=== PATIENT | female | born 1995 | race Hispanic/Latino ===

== ENCOUNTER 2017-09-17 13:37 | Emergency (ER) | payer SELFPAY ==
[2017-09-17 14:40] LABS: BASOPHILS % (AUTO) 0.5 % (0.0-5.0); EOSINOPHILS % (AUTO) 1.1 % (0.0-8.0); HEMATOCRIT 35.5 % (36-48); MEAN CORPUSCULAR HEMOGLOBIN 27.8 pg (27.0-33.0); MEAN CORPUSCULAR HGB CONC 34.4 g/dL (32.0-36.0); MEAN CORPUSCULAR VOLUME 80.9 fL (79-99); MONOCYTES % (AUTO) 6.4 % (3.0-13.0); PLATELET COUNT (AUTO) 299 K/uL (130-400); RED BLOOD CELL COUNT(AUTO) 4.38 MIL/uL (4.00-5.50); RED CELL DISTRIBUTION WIDTH 13.6 % (11.0-15.5); WHITE BLOOD COUNT (AUTO) 10.1 K/uL (4.8-10.8)
[2017-09-17 14:41] LABS: APPEARANCE,URINE CLOUDY (CLEAR); BILIRUBIN,URINE Negative (NEGATIVE); COLOR,URINE Yellow (YELLOW); GLUCOSE, URINE (UA) Negative (NEGATIVE); KETONES,URINE Negative (NEGATIVE); LEUKOCYTE ESTERASE ,URINE Small (NEGATIVE); NITRATE,URINE Negative (NEGATIVE); OCCULT BLOOD,URINE Large (NEGATIVE); PROTEIN,URINE POS 1+ (NEGATIVE); UROBILINOGEN,URINE 0.2 mg/dL (0.2-1.0)
[2017-09-17 14:48] LABS: AMPHET/METH SCREEN,URINE NEGATIVE (NEGATIVE); BARBITURATE SCREEN, URINE NEGATIVE (NEGATIVE); BENZODIAZEPINES SCREEN,URINE NEGATIVE (NEGATIVE); CANNABINOID SCREEN,URINE NEGATIVE (NEGATIVE); COCAINE SCREEN,URINE NEGATIVE (NEGATIVE); HCG,QUAL RESULT NEGATIVE (NEGATIVE); OPIATE SCREEN,URINE NEGATIVE (NEGATIVE); PHENCYCLIDINE SCREEN,URINE NEGATIVE (NEGATIVE)
[2017-09-17 14:51] LABS: CREATININE 0.7 mg/dL (0.5-1.5); POTASSIUM 3.7 mmol/L (3.5-5.1)
[2017-09-17 14:57] LABS: ALBUMIN 3.5 g/dL (3.5-5.0); AMORPHOUS SEDIMENT,UR Few /LPF (None Seen); BACTERIA,URINE Few /HPF (None Seen); BILIRUBIN,TOTAL 0.2 mg/dL (0.2-1.0); SQUAMOUS EPITHELIAL CELL,UR Moderate /HPF (0-2); TOTAL PROTEIN, SERUM 7.6 g/dL (6.0-8.3)
[2017-09-17 15:06] LABS: BILIRUBIN,DIRECT 0.1 mg/dL (0.0-0.3)
[2017-09-17] MEDS ORDERED: FAMOTIDINE 20MG TAB 20 MG TAB ONE (15:43)
[2017-09-17] MEDS ORDERED: ONDANSETRON ODT 4 MG TAB ONE (15:43)
[2017-09-17] MEDS ORDERED: DICYCLOMINE HCL 20 MG TAB ONE (15:43)
== END 2017-09-17 15:58 | disposition home or self-care (01) ==
LOC: EDH 13:37
DX: K80.80 Other cholelithiasis without obstruction (principal); J45.909 Unspecified asthma, uncomplicated; Z72.0 Tobacco use
CPT/HCPCS: 36415; 76705; 80048; 80076; 80305; 81001; 81025; 83690; 85025; 93005

== ENCOUNTER 2018-04-30 18:39 | Emergency (ER) | payer SELFPAY | END 2018-04-30 20:21 | disposition home or self-care (01) | LOC: EDH 18:39 | DX: J11.1 Influenza due to unidentified influenza virus with other respiratory manifestations (principal); J45.909 Unspecified asthma, uncomplicated; Z90.49 Acquired absence of other specified parts of digestive tract; Z72.0 Tobacco use | CPT/HCPCS: 87804 ==